=== PATIENT | female | born 1985 | race Caucasian/White ===

== ENCOUNTER 2019-04-10 09:04 | Outpatient (CLI) | payer OTHER ==
--- NOTE | 2019-04-10 11:48 | RAD ---
LUMBAR SPINE RADIOGRAPHS 6 VIEWS: Date: 04/10/19 PROVIDED CLINICAL HISTORY: Low back pain. FINDINGS: Five non-rib bearing lumbar-type vertebral bodies are present. Lumbar alignment appears normal. No ev idence for abnormal translational motion with flexion or extension. Vertebral body heights and interv ertebral disc space heights appear preserved. The oblique views demonstrate no definite evidence for pars defects. Pedicles appear intact. SI joints appear symmetric. IUD overlies the central pelvis. IMPRESSION: Unremarkable lumbar spine radiographs. POS: [facility]
== END 2019-04-10 09:05 | disposition home or self-care (01) ==
LOC: SCSRAD 09:04
PROVIDERS: ATTEND Family Medicine
DX: M54.32 Sciatica, left side (principal)
CPT/HCPCS: 72100

== ENCOUNTER 2019-04-23 14:28 | Outpatient (CLI) | payer OTHER ==
--- NOTE | 2019-04-23 15:33 | MRI ---
MRI Lumbar Spine Noncontrast: HISTORY: Sciatica of left side. Low back pain. She states chronic low back pain which now periodically radiate s down left lower extremity. COMPARISON: None FINDINGS: The visualized retroperitoneal structures demonstrate a normal appearance. Conus medullaris is normal in morphology and terminates at the L1 level. Normal signal intensity is demonstrated in the bone marrow. A small Schmorl's node is seen in the sup erior endplate of the L4 vertebral body. L1-2: There is no disc bulge or disc herniation. Central spinal canal and neural foramina are patent. L2-3: There is no disc bulge or disc herniation. Central spinal canal and neural foramina are patent. L3-4: There is a mild broad-based disc osteophyte complex with tiny central disc protrusion. This res ults in mild narrowing of the central spinal canal. The left neural foramen is patent. There is minimal encroachment on the inferior aspect of the right neural foramen. L4-5: There is a mild disc osteophyte complex present. Facet hypertrophic changes and ligamentous thi ckening are noted. There is mild generalized narrowing of the central spinal canal. The neural foramina are patent. L5-S1: There is loss of intervertebral disc height with evidence of disc desiccation. Disc osteophyte complex is present with mild facet degenerative changes noted. There is no significant narrowing of the central spinal canal or neural foramina. IMPRESSION: Mild degenerative changes lower lumbar spine without high-grade stenosis involving the central spinal canal or neural foramina.
== END 2019-04-23 14:29 | disposition home or self-care (01) ==
LOC: SCSMRI 14:28
PROVIDERS: ATTEND Family Medicine
DX: M54.32 Sciatica, left side (principal); M54.5 Low back pain; M47.816 Spondylosis without myelopathy or radiculopathy, lumbar region; M48.061 Spinal stenosis, lumbar region without neurogenic claudication
CPT/HCPCS: 72148